=== PATIENT | female | born 1985 | race Hispanic/Latino ===

== ENCOUNTER 2024-08-24 01:39 | Emergency (ER) | payer BC ==
[2024-08-24] MEDS ORDERED: methylPREDNISolone Sod Succ/PF 125 MG/2 ML VIAL ONE (03:19)
[2024-08-24] MEDS ORDERED: diphenhydrAMINE 50 MG/ML VIAL ONE (03:19)
[2024-08-24] MEDS ORDERED: Metoclopramide HCl 10 MG (2 mL) VIAL ONE (03:20)
[2024-08-24] MEDS ORDERED: Ketorolac Tromethamine 30 MG (1 mL) VIAL ONE (03:20)
[2024-08-24 04:15] LABS: ALT (SGPT) 7 U/L (8-55); AST (SGOT) 18 U/L (5-34); Albumin 3.4 g/dL (3.5-5.0); Alkaline Phosphatase 87 U/L (40-110); Anion Gap 13 mmol/L (10-20); BUN (Urea Nitrogen) 16 mg/dL (7.0-18.7); Bilirubin, Total 0.7 mg/dL (0.2-1.2); Calc. Creatinine Clearance 0 mL/min (70-130); Calcium 8.5 mg/dL (7.8-10.44); Carbon Dioxide 21 mmol/L (22-29); Chloride 110 mmol/L (98-107); Estimated GFR 104; Globulin 3.5 g/dL (2.4-3.5); Glucose 87 mg/dL (70-105); Potassium 4.3 mmol/L (3.5-5.1); Protein, Total 6.9 g/dL (6.0-8.3); Sodium 140 mmol/L (136-145)
[2024-08-24 04:37] LABS: #Basophils 0.02 10x3/uL (0.0-0.2); #Eosinophils 0.17 10x3/uL (0.0-0.5); #Monocytes 0.52 10x3/uL (0.0-1.1); #Neutrophils 3.69 10x3/uL (1.5-8.4); %Basophils 0.3 % (0.0-2.0); %Eosinophils 2.3 % (0.0-6.0); %Lymphocytes 40.9 % (18.0-47.0); %Neutrophils 49.4 % (40.0-75.0); Hematocrit 37.6 % (34.9-44.5); Hemoglobin 12.1 g/dL (12.0-15.5); Mean Corpuscular HGB CONC 32.2 g/dL (32.0-36.0); Mean Corpuscular Hemoglobin 28.9 pg (27.0-33.0); Platelet Count 284 10x3/uL (150-450); RBC Distribution Width 13.2 % (11.5-14.5); Red Blood Cell (RBC) Count 4.18 10x6/uL (3.90-5.03); White Blood Cell (WBC) Count 7.5 10x3/uL (3.5-10.5)
== END 2024-08-24 05:45 | disposition home or self-care (01) ==
LOC: CSHERS 01:39
DX: J32.3 Chronic sphenoidal sinusitis (principal); R51.9 Headache, unspecified
CPT/HCPCS: 36415; 70450; 72125; 80053; 85025; 96365; 96375; J1200; J1885; J2765; J2919